=== PATIENT | male | born 1950 | race Caucasian/White ===

== ENCOUNTER → 2017-03-20 | Outpatient (CLI) | payer MEDICARE, OTHER ==
[2015-05-31 11:00] VITALS: BP 138/84
[~2017-03-20] MED LIST: ACYC800T PO; ALBU18HF IH; APIX5TAB3 PO; CEFU250T PO; FLUT1DIS3 IH; GABA-586 PO; HYDR1TAB10 PO; IOHEXOL 240 MG/ML 50ML VIAL. ONE; IOHEXOL 300 MG/ML 75 ML VIAL. IV ONE; IPRA3AMP IH; LIDO700A4 TP; SOTA120T27 PO; SULF-143 PO; TEST200V3 IM
[2017-03-20 14:52] LABS: ALBUMIN 3.6 g/dL (3.4-5.0); CALCIUM 8.8 mg/dL (8.5-10.1); POTASSIUM 4.6 mmol/L (3.5-5.1); TOTAL BILIRUBIN 0.6 mg/dL (0.2-1.0); TOTAL PROTEIN 7.3 g/dL (6.4-8.2)
--- NOTE | 2017-03-20 15:14 | RAD ---
CT of the abdomen and pelvis with contrast, 03/20/2017: History: Right lower quadrant pain Multidetector CT imaging was performed following oral and IV administration of contrast. There is mild linear atelectasis and/or scarring in the lung bases. The unopacified liver is unremarkable. No gallbladder abnormality is seen. The pancreas is unremarkable. The spleen is of normal size. There is a tiny cyst in the upper pole of the right kidney. The kidneys are otherwise unremarkable. No adrenal abnormality is detected. There is mild aortic calcific plaquing without evidence of aneurysm. No abdominal or pelvic adenopathy is seen. The prostate gland is mildly enlarged. It contains several calcifications. The urinary bladder is unremarkable. There is a moderate amount stool in the colon. There are scattered colonic diverticula. No paracolonic inflammatory process is seen. The appendix is surgically absent. The small bowel loops are not dilated. No free fluid or free air is evident in the abdomen or pelvis. There is mild dilatation of the inguinal rings bilaterally. They contain fat and spermatic cord structures. No bowel herniation is evident. Moderate multilevel hypertrophic degenerative changes are present in the spine. IMPRESSION: 1. Colonic diverticulosis. 2. Small bilateral inguinal hernias containing only fat. 3. Moderate amount of stool throughout the colon. 4. Mild nonspecific prostatic enlargement. PQRS Compliance Statement: One or more of the following individualized dose reduction techniques were utilized for this examination: 1. Automated exposure control 2. Adjustment of the mA and/or kV according to patient size 3. Use of iterative reconstruction technique
== END | disposition home or self-care (01) ==
LOC: CT 13:12
PROVIDERS: ATTEND Physician Assistant
DX: N28.1 Cyst of kidney, acquired (principal); N40.0 Benign prostatic hyperplasia without lower urinary tract symptoms; N42.89 Other specified disorders of prostate; K57.30 Diverticulosis of large intestine without perforation or abscess without bleeding; K40.90 Unilateral inguinal hernia, without obstruction or gangrene, not specified as recurrent; I70.0 Atherosclerosis of aorta; I10 Essential (primary) hypertension; J44.9 Chronic obstructive pulmonary disease, unspecified; Z79.01 Long term (current) use of anticoagulants; Z90.89 Acquired absence of other organs
CPT/HCPCS: 36415; 74177; 80053; Q9966; Q9967